=== PATIENT | female | born 1965 | race Caucasian/White ===

== ENCOUNTER 2018-06-30 17:39 | Observation (INO) ==
[~2018-06-30 17:39] MED LIST: Ipratropium/Albuterol Neb 3 ML IH PRN
[2018-06-30] MEDS ORDERED: Aspirin 81 MG TAB.CHEW PO ONE (18:01)
--- NOTE | 2018-06-30 18:08 | Emergency Department Note ---
Disposition Clinical Impression: Chest pain Qualifiers: Chest pain type: unspecified Qualified Code(s): R07.9 - Chest pain, unspecified Disposition: Admitted As Inpatient Condition: Fair Chest Pain HPI - General Chief Complaint: ED Chest Pain Stated Complaint: CP x2days Time Seen by Provider: 06/30/18 17:52 Source: patient Limitations: no limitations Vital Signs Reviewed: Yes Nursing Notes Reviewed: Yes - History of Present Illness HPI Narrative: 53-year-old female presents emergency Department chief complaint of chest pain. Pain started approximately 2 days ago. It is intermittent its pressure sensation. She says it moves around in her chest but largely is a centrally located. Patient also has some neck pain which she feels is on related. Patient has a cardiac history. She had a catheterization about 9 months ago which apparently demonstrated atherosclerotic changes. She also has a history of CHF for which she takes Lasix. She feels like she is getting increased s welling of the lower extremities and also some increasing in shortness of breath. No fevers or chills. Patient states that she took her aspirin last night. She said that she took nitroglycerin today which eased the pain but then it came back and has since eased again. Currently she is pain-free. Pt complaint: chest pain Onset (ago): day(s) Duration: intermittent Onset: during rest, during exertion Pain Location: substernal Severity: moderate Severity scale (1-10): 4 Quality: tightness, heaviness Pain Radiation: neck Improves with: nothing Worsens with: exertion Context: recent illness Treatments prior to arrival chest pain: aspirin, nitroglycerin - Related Data Previous Rx's Medication Instructions Recorded Clindamycin HCl 300 mg PO TID #30 capsule 11/16/16 Mupirocin [Bactroban Oint] 22 appl TP BID #1 tube 11/16/16 Allergies Allergy/AdvReac Type Severity Reaction Status Date / Time No Known Allergies Allergy Verified 11/01/16 12:58 All systems ED: reviewed and negative except as stated. Constitutional: Reports: as per HPI Eyes: Reports: as per HPI ENT ED: Reports: as per HPI Cardiovascular: Reports: chest pain Respiratory: Reports: as per HPI Gastrointestinal: Reports: as per HPI Chest Pain PMH - Past Medical History Medical history: Reports: asthma, CHF, COPD, GERD, hyperlipidemia, hypertension Psychiatric history: Reports: no psych history - Social History Smoking Status: Current every day smoker Alcohol use: Reports: none Drug use: Reports: none Physical Exam - General Limitations: no limitations General appearance: alert - Head Head exam: atraumatic - Eye Eye exam: Present: normal appearance - ENT ENT exam: normal exam - Neck Neck exam: Present: normal inspection - Chest Chest inspection: Present: normal inspection - Respiratory Respiratory exam: Present: normal lung sounds bilaterally - Cardiovascular Cardiovascular exam: Present: regular rate - Abdominal Exam Abdominal exam: Present: soft, Non-Tender - Expanded Lower Extremity Exam Hip/Pelvis exam: Present: normal inspection - Neurological Exam Neurological exam: Present: alert, oriented X3 - Psychiatric Psychiatric exam: Present: normal affect, normal mood - Skin Skin exam: Present: warm, dry, intact Course Vital Signs Temperature 98.1 F 06/30/18 17:51 Pulse Rate 98 06/30/18 17:51 Respiratory Rate 18 06/30/18 17:51 Blood Pressure 148/90 06/30/18 17:51 O2 Sat by Pulse Oximetry 89 06/30/18 17:51 Temperature 98.1 F 06/30/18 17:51 Pulse Rate 98 06/30/18 17:51 Respiratory Rate 18 06/30/18 17:51 Blood Pressure 148/90 06/30/18 17:51 O2 Sat by Pulse Oximetry 89 06/30/18 17:51 Oxygen Delivery Oxygen Delivery Room Air Chest Pain - MDM Narrative Medical decision making narrative: We will do usual cardiac workup on the patient. We will give her aspirin. She does not require nitroglycerin at this time. If she develops chest pain while here we will do that. Initial EKG was unremarkable. Once labs are back likely will admit to the hospitalist service for additional evaluation and treatment considering the patient's symptoms and risk factors. - Medical Records Medical records reviewed: Yes I reviewed the patient's medical records. - Lab Data Lab results reviewed: Yes I reviewed the patient's lab results. - Radiology Data Radiology results reviewed: Yes I reviewed the patient's radiology results. - EKG Data EKG attestation: Yes I reviewed and interpreted this EKG. EKG shows normal: sinus rhythm Rate: normal Rhythm: NSR When compared to previous EKG there are: no significant changes Interpretation: no acute changes Heart Score - Score History: Moderately Suspicious EKG: Normal Age: 45-65 Risk Factors: Equal/Greater than 3 risk factor or history of atherosclerotic disease
[2018-06-30 18:28] LABS: Basophils # 0.1 K/mcL (0.0-0.2); Basophils % 0.5 %; Eosinophils # 0.3 K/mcL (0.0-0.6); Eosinophils % 3.4 %; Hematocrit 39.4 % (35.3-44.9); Hemoglobin 13.7 g/dL (11.5-15.4); Immature Granulocytes % 0.2 % (0-4); Lymphocytes # 2.6 K/mcL (0.6-4.6); Lymphocytes % 27.2 %; Mean Corpuscular HGB Conc 34.8 g/dL (31.6-35.5); Mean Corpuscular Hemoglobin 30.6 pg (28.0-33.3); Mean Corpuscular Volume 87.9 fL (83.0-100.0); Mean Platelet Volume 9.3 fL (9.4-12.4); Monocytes # 0.4 K/mcL (0.0-1.3); Monocytes % 4.6 %; Neutrophils # 6.2 K/mcL (1.6-8.9); Platelet Count 246 K/mcL (140-400); Red Blood Count 4.48 M/mcL (3.82-4.97); Segmented Neutrophils % 64.1 %
--- NOTE | 2018-06-30 18:29 | Emergency Department Note ---
Disposition Clinical Impression: Chest pain Qualifiers: Chest pain type: unspecified Qualified Code(s): R07.9 - Chest pain, unspecified Disposition: Admitted As Inpatient Condition: Fair Referrals: Jody Jiménez CNP [Primary Care Provider] - Forms: ED Satisfaction Letter Time of Disposition: 20:34 Chest Pain HPI - General Chief Complaint: ED Chest Pain Stated Complaint: CP x2days Time Seen by Provider: 06/30/18 17:52 Source: patient Limitations: no limitations Vital Signs Reviewed: Yes Nursing Notes Reviewed: Yes - History of Present Illness HPI Narrative: Patient is a 53-year-old female presenting with chest pain. Patient has history of COPD, CHF and hyperlipidemia. Patient states that for the past 2 days she has been having intermittent chest pressure middle of her chest just to the left side of her breast. This can happen with exertion or at rest. Pain does not resolve on its own. Patient states today she had an increased episode of chest pressure with associated short of breath. She did take 1 nitroglycerin which took the pain away. No associated nausea or vomiting. She does have history of left heart catheter multiple months ago. She states recently she is gaining weight and feels as though she is retaining more fluid. Notes that 1 month ago she would 193 pounds, however today she was 206. She states that she has recently increased her Lasix dose to 60 mg. Per her PCP recommendations. Pain Location: substernal Severity scale (1-10): 4 Quality: tightness, heaviness Improves with: nothing Worsens with: exertion Context: recent illness - Related Data Previous Rx's Medication Instructions Recorded Clindamycin HCl 300 mg PO TID #30 capsule 11/16/16 Mupirocin [Bactroban Oint] 22 appl TP BID #1 tube 11/16/16 Allergies Allergy/AdvReac Type Severity Reaction Status Date / Time No Known Allergies Allergy Verified 11/01/16 12:58 All systems ED: reviewed and negative except as stated. Review of Systems: As Per HPI Constitutional: Reports: as per HPI Eyes: Reports: as per HPI ENT ED: Reports: as per HPI Cardiovascular: Reports: chest pain Respiratory: Reports: as per HPI Gastrointestinal: Reports: as per HPI Genitourinary: Denies: dysuria, frequency, hematuria, discharge Musculoskeletal: Denies: back pain, neck pain, arthralgia, myalgia Integumentary: Denies: rash, abrasion, lesions Neurological: Denies: headache, weakness, numbness, paresthesias, confusion, abnormal gait, vertigo Psychiatric: Denies: anxiety, depression, suicidal thoughts, homicidal thoughts, auditory hallucinations, visual hallucinations Chest Pain PMH - Past Medical History Medical history: Reports: asthma, CHF, COPD, GERD, hyperlipidemia, hypertension Psychiatric history: Reports: no psych history - Social History Smoking Status: Current every day smoker Alcohol use: Reports: none Drug use: Reports: none Physical Exam - General Limitations: no limitations General appearance: alert - Head Head exam: atraumatic, normocephalic, normal inspection - Eye Eye exam: Present: normal appearance, PERRL, EOMI - ENT ENT exam: normal exam, normal oropharynx, mucous membranes moist - Neck Neck exam: Present: normal inspection, full ROM, trachea midline - Chest Chest inspection: Present: normal inspection - Respiratory Respiratory exam: Present: normal lung sounds bilaterally - Cardiovascular Cardiovascular exam: Present: regular rate, normal rhythm, normal heart sounds - Abdominal Exam Abdominal exam: Present: soft, Non-Tender. Absent: tenderness, distention, guarding, rebound, rigidity - Extremities Exam Extremities exam: Present: normal capillary refill, pedal edema (1-2+ pitting edema in the bilateral lower extremities). Absent: tenderness, calf tenderness - Neurological Exam Neurological exam: Present: alert, oriented X3 - Psychiatric Psychiatric exam: Present: normal affect, normal mood Course Vital Signs Temperature 98.1 F 06/30/18 17:51 Pulse Rate 98 06/30/18 17:51 Respiratory Rate 18 06/30/18 17:51 Blood Pressure 148/90 06/30/18 17:51 O2 Sat by Pulse Oximetry 89 06/30/18 17:51 Temperature 98.1 F 06/30/18 17:51 Pulse Rate 88 06/30/18 20:54 Respiratory Rate 18 06/30/18 20:54 Blood Pressure 116/68 06/30/18 20:54 O2 Sat by Pulse Oximetry 93 06/30/18 20:54 Oxygen Delivery Oxygen Delivery Nasal Cannula Chest Pain - MDM Narrative Medical decision making narrative: Patient is a 53-year-old female presented with chest pain. History of COPD, CHF, hypertension and hyperlipidemia. Patient states that she has been having chest pain episodes described as pressure-like sensation that is exertional with associated short of breath. On examination, patient is normotensive and afebrile. On examination she is clear to auscultation bilaterally in no acute distress, RRR. CBC, BMP, troponin and BNP are all within normal limits. Chest x-ray does show pulmonary vascular congestion, no opacity or effusion. She was given 1 dose of Lasix 40 mg IV. EKG was performed at 1753 with a ventricular rate of 96, regular rhythm, no ST elevation, ST depression or T-wave changes, no changes from previous EKG in 2017. No acute ischemic changes are noted. Troponin is negative. Given patient's concerning story as well as vascular history, will admit patient this point in time for ACS rule out. - Medical Records Medical records reviewed: Yes I reviewed the patient's medical records. - Lab Data Lab results reviewed: Yes I reviewed the patient's lab results. Result diagrams: 06/30/18 18:03 06/30/18 18:03 Lab Results 06/30/18 06/30/18 06/30/18 Range/Units 18:03 18:03 18:03 WBC 9.7 (4.3-11.1) K/mcL RBC 4.48 (3.82-4.97) M/mcL Hgb 13.7 (11.5-15.4) g/dL Hct 39.4 (35.3-44.9) % MCV 87.9 (83.0-100.0) fL MCH 30.6 (28.0-33.3) pg MCHC 34.8 (31.6-35.5) g/dL RDW 14.0 (11.5-14.5) % Plt Count 246 (140-400) K/mcL MPV 9.3 L (9.4-12.4) fL Immature Gran % 0.2 (0-4) % Seg Neutrophils % 64.1 % Lymphocytes % 27.2 % Monocytes % 4.6 % Eosinophils % 3.4 % Basophils % 0.5 % Neutrophils # 6.2 (1.6-8.9) K/mcL Lymphocytes # 2.6 (0.6-4.6) K/mcL Monocytes # 0.4 (0.0-1.3) K/mcL Eosinophils # 0.3 (0.0-0.6) K/mcL Basophils # 0.1 (0.0-0.2) K/mcL PT 12.2 H (9.4-12.1) Seconds INR 1.1 APTT 23.0 L (26.0-36.0) Seconds D-Dimer 412 (0-500) ng/mLFEU Sodium (136-145) mEq/L Potassium (3.5-5.1) mEq/L Chloride (98-107) mEq/L Carbon Dioxide (23-29) mEq/L BUN (6-20) mg/dL Creatinine (0.60-1.20) mg/dL Est GFR ( Amer) (> 60) Est GFR (Non-Af Amer) (> 60) BUN/Creatinine Ratio (6-26) Glucose (70-105) mg/dL Calculated Osmolality (280-300) Calcium (8.6-10.3) mg/dL Troponin I (< 0.04) ng/mL B-Natriuretic Peptide 27 (Less than 100) pg/mL 06/30/18 Range/Units 18:03 WBC (4.3-11.1) K/mcL RBC (3.82-4.97) M/mcL Hgb (11.5-15.4) g/dL Hct (35.3-44.9) % MCV (83.0-100.0) fL MCH (28.0-33.3) pg MCHC (31.6-35.5) g/dL RDW (11.5-14.5) % Plt Count (140-400) K/mcL MPV (9.4-12.4) fL Immature Gran % (0-4) % Seg Neutrophils % % Lymphocytes % % Monocytes % % Eosinophils % % Basophils % % Neutrophils # (1.6-8.9) K/mcL Lymphocytes # (0.6-4.6) K/mcL Monocytes # (0.0-1.3) K/mcL Eosinophils # (0.0-0.6) K/mcL Basophils # (0.0-0.2) K/mcL PT (9.4-12.1) Seconds INR APTT (26.0-36.0) Seconds D-Dimer (0-500) ng/mLFEU Sodium 140 (136-145) mEq/L Potassium 3.2 L (3.5-5.1) mEq/L Chloride 101 (98-107) mEq/L Carbon Dioxide 30 H (23-29) mEq/L BUN 9 (6-20) mg/dL Creatinine 0.72 (0.60-1.20) mg/dL Est GFR ( Amer) > 60 (> 60) Est GFR (Non-Af Amer) > 60 (> 60) BUN/Creatinine Ratio 13 (6-26) Glucose 91 (70-105) mg/dL Calculated Osmolality 288 (280-300) Calcium 9.6 (8.6-10.3) mg/dL Troponin I < 0.03 (< 0.04) ng/mL B-Natriuretic Peptide (Less than 100) pg/mL - Radiology Data Radiology results reviewed: Yes I reviewed the patient's radiology results. Chest X-Ray 06/30/18 18:01 IMPRESSION: Borderline pulmonary vascular congestion. Otherwise negative. D/ / Km Durand MD / Km Durand MD Interpreting Provider: Km Durand MD - EKG Data EKG attestation: Yes I reviewed and interpreted this EKG. Rolando - Rolando Situation: Demographics, MOA Background: Presenting Complaint, Relevant PMH, Meds, & Allergies Assessment: Vital Signs, Course and respsone to treatment, Exam Concerns, Patient/Family Expectation, Pertinant Lab Results, Outstanding Labs Recommendation: Barrier(s) to disposition, Recommendation based on pending studies, treatments, or consults VaniaBLizzeth Report Given to: Dr. Heather Marshall Repor Time: 20:58 (Accepted) Attestation Statement - Attestation Attestation: Patient was seen with resident physician. I reviewed the history, physical, assessment and plan, and agree with the findings. I also personally evaluated this patient and had uwyp-[id number] time with this patient. 53-year-old female presents emergency Department chief complaint of chest pain. Pain is a pressure described primarily in the central portion of the chest but moves around a little bit. It is intermittent episodes lasting minutes at a time. It has been ongoing for the last 2 days. She had it today and took a nitroglycerin and it got a little bit better which ultimately prompted her visit. She did take an aspirin last night. She denies fevers or chills. No shortest of breath. Review of systems as above remainder negative. Physical exam vital signs are stable. ENT is unremarkable. Heart regular rhythm and rate. Lungs clear. Abdomen is soft and nontender. Extremity is unremarkable. Neurologically intact pre-and skin no rashes. Psych normal. ED course. We will do a cardiac workup. EKG shows no acute ischemic changes initially. Patient was pain-free at the time of evaluation so we did not give aspirin but we will held any nitroglycerin. Because the patient has a history of coronary artery disease and she is having the scan of chest pain she will be admitted to the hospitalist service for further evaluation and treatment I once her initial workup is complete. Initial workup did not reveal acute abnormalities. Hemodynamically she remained stable while in the ER. I agree with the resident physician assessment and plan.
[2018-06-30 18:36] LABS: INR 1.1; Prothrombin Time 12.2 Seconds (9.4-12.1)
[2018-06-30 18:47] LABS: Troponin I < 0.03 ng/mL (< 0.04)
[2018-06-30 18:48] LABS: BUN/Creatinine Ratio 13 (6-26); Blood Urea Nitrogen 9 mg/dL (6-20); Calcium 9.6 mg/dL (8.6-10.3); Carbon Dioxide 30 mEq/L (23-29); Chloride 101 mEq/L (98-107); Glucose 91 mg/dL (70-105); Osmolality,Calculated 288 (280-300); Potassium 3.2 mEq/L (3.5-5.1); Sodium 140 mEq/L (136-145); eGFR For Non-African Americans > 60 (> 60)
[2018-06-30] MEDS ORDERED: Furosemide 40 MG/4 ML VIAL IVP ONE (20:33)
[2018-06-30] MEDS ORDERED: Naloxone 0.4 MG/ML INJ IVP PRN (21:55)
[2018-06-30] MEDS ORDERED: *HR* Morphine 2 MG/ML SYRINGE IVP PRN (21:55)
[2018-06-30] MEDS ORDERED: Nitroglycerin 0.4 MG TAB.SUBL SL PRN (21:55)
--- NOTE | 2018-06-30 22:14 | Internal Med History&Physical ---
Date of Encounter: 06/30/18 Time of Encounter: 22:06 Internal Medicine - H&P: HPI Chief complaint: Chest Pain History of present illness: Ms. Salinas is a 53 year old female female past medical history of COPD, CHF, hypertension and hyperlipidemia who presents to the ED with a chief complaint of chest pain. Patient states that she has been having intermittent chest pressure located near the left breast for the past 2 days. Patient did take 1 sublingual nitroglycerin which alleviated the pain. Patient has noted weight gain and feels that she is retaining more fluid in that she wait 193 pounds approximately one month ago and now weighs 206. She recently had her Lasix increased to 60 mg by her primary care doctor. On arrival patient is normotensive and afebrile. Mildly hypokalemic with a initial negative troponin and normal BNP. EKG was reviewed which appears to be poor quality however, no significant ST or T-wave changes noted. Would recommend repeat. Chest x-ray suggestive of mild pulmonary vascular congestion. IV Lasix in the ED 40 mg IV push. An was given 40 mg of Lasix in the ED. Past Med Surg Social Fam HX - Past Medical History Medical history: asthma, CHF, COPD, GERD, hyperlipidemia, hypertension Additional medical history: sleep disorder. nerve pain Psychiatric history: no psych history - Past Surgical History Additional surgical history: back surgery - Social History Smoking Status: Current every day smoker Smokeless Tobacco Status: No Alcohol use: none Drug use: none Internal Medicine - H&P: Meds Clindamycin HCl 300 mg PO TID #30 capsule 11/16/16 [Rx] Mupirocin [Bactroban Oint] 22 appl TP BID #1 tube 11/16/16 [Rx] Albuterol Sulfate [Albuterol Inhaler] 0 puff IH Q4HR 06/30/18 [History] Cholecalciferol (Vitamin D3) [Vitamin D] 2,000 unit PO DAILY 06/30/18 [History] Fluticasone Propionate [Flovent Diskus] 220 mcg IH BID 06/30/18 [History] Furosemide [Lasix] 40 mg PO DAILY 06/30/18 [History] Gabapentin [Neurontin] 800 mg PO TID 06/30/18 [History] Loratadine [Allergy Relief] 10 mg PO DAILY 06/30/18 [History] Mirtazapine [Remeron] 15 mg PO HS 06/30/18 [History] Omeprazole [PriLOSEC] 20 mg PO DAILY 06/30/18 [History] Simvastatin [Zocor] 40 mg PO HS 06/30/18 [History] Tizanidine HCl [Zanaflex] 4 mg PO BID 06/30/18 [History] Zolpidem [Ambien] 10 mg PO DAILY 06/30/18 [History] amLODIPine [Norvasc] 5 mg PO DAILY 06/30/18 [History] hydrOXYzine pamoate [HydrOXYzine Pamoate] 25 mg PO TID 06/30/18 [History] Allergy/AdvReac Type Severity Reaction Status Date / Time No Known Allergies Allergy Verified 11/01/16 12:58 All Systems PM: A 10-system review of systems was performed and is negative for pertinent findings except as documented above in the HPI. - Constitutional Constitutional: no chills, no fever(s), no night sweats - EENT Eyes: no change in vision, no discharge, no pain, no photophobia Ears: no ear discharge, no ear pain, no tinnitus Nose, mouth and throat: no dysphagia, no nasal discharge, no neck pain, no sore throat - Cardiovascular Cardiovascular ROS IM: no chest pain, no diaphoresis, no dyspnea, no lightheadedness, no palpitations, no syncope - Respiratory Respiratory: no cough, no dyspnea, no wheezing, no excessive phlegm production - Gastrointestinal Gastrointestinal: no abdominal pain, no diarrhea, no hematemesis, no hematochezia, no melena, no nausea, no vomiting - Genitourinary Genitourinary: no change in urinary stream, no dysuria, no flank pain, no hematuria - Musculoskeletal Musculoskeletal ROS IM: no numbness, no tingling - Integumentary Integumentary IM: no rash, no unusual bruising - Neurological Neurological ROS: no confusion, no convulsions, no focal weakness, no numbness, no tingling, no tremor(s) - Hematologic/Lymphatic Hematologic/Lymphatic: no easy bruising - Constitutional Vitals: Temp Pulse Resp BP Pulse Ox 98.1 F 88 18 116/68 93 06/30/18 17:51 06/30/18 20:54 06/30/18 20:54 06/30/18 20:54 06/30/18 20:54 Exam: General: Alert and oriented Skin:Normal color, no rash, no lesions. HEENT:EOM, pupils equal, round and reactive. Cardiovascular:Normal S1 & S2, no rubs, murmurs or gallops. No JVD. Pulse regular. Lungs:Normal breath sounds, no wheezes or crackles. Abdomen:Soft, non-tender, no rigidity. Extremities:No deformity, no edema or tenderness, no joint swelling or clubbing. Neurological:Normal cognition and motor skills. Pulses:Carotid and radial pulses normal +2. Rest of the physical exam is non contributory Internal Med - H&P Results - Labs CBC & Chem 7: 07/01/18 00:17 07/01/18 00:17 Labs: Short CBC 06/30/18 Range/Units 18:03 WBC 9.7 (4.3-11.1) K/mcL Hgb 13.7 (11.5-15.4) g/dL Hct 39.4 (35.3-44.9) % Plt Count 246 (140-400) K/mcL Neutrophils # 6.2 (1.6-8.9) K/mcL BMP 06/30/18 18:03 Sodium 140 Potassium 3.2 L Chloride 101 Carbon Dioxide 30 H BUN 9 Creatinine 0.72 Glucose 91 Calcium 9.6 Cardiac Enzymes 06/30/18 Range/Units 18:03 Troponin I < 0.03 (< 0.04) ng/mL - Impressions ITS Impressions Chest X-Ray 06/30/18 18:01 IMPRESSION: Borderline pulmonary vascular congestion. Otherwise negative. D/ / Km Durand MD / Km Durand MD Interpreting Provider: Km Durand MD - Assessment and plan (1) Chest pain Status: Acute Assessment and plan: Patient is a 53-year-old female with a past medical history of hypertension, CHF, COPD and significant smoking history who presents with chest pain described as substernal, nonradiating associated with left shoulder and left arm pain that was alleviated with nitroglycerin. Patient states that she has been overexerting herself lately doing housecleaning. Patient states she had a left heart catheter approximately 9 months ago which she stated showed plaque but no stents were placed at the time. Initial troponin were negative and EKG showed though slightly of poor quality does not show any ischemic changes. Patient currently chest pain-free and is feeling better since she arrived. -Trend troponin -Continue telemetry -Cardiology consult Qualifiers: Chest pain type: unspecified Qualified Code(s): R07.9 - Chest pain, unspecified (2) Congestive heart failure Status: Acute Assessment and plan: Patient reports a weight gain of approximately 7 pounds over the past week associated with shortness of breath particularly over the past couple days and symptoms suggestive of orthopnea. She does admit to drinking 8-98 ounce bottles of water a day. Patient recently had her Lasix increased from 40-60 mg a day by her PCP. Chest x-ray shows borderline pulmonary vascular congestion. Lungs were clear and trace edema noted in the lower extremities bilaterally. Patient took a nebulizer treatment earlier today which she states also helped. Suspect mild congestive heart failure. Patient feeling better after receiving Lasix here in the ED. -We will monitor daily weights -Strict I's and O's with fluid restriction to 1.5 L daily -Consider repeating echocardiogram -We will resume patient's home Lasix -Appreciate cardiology input Qualifiers: Heart failure type: unspecified Heart failure chronicity: unspecified Qualified Code(s): I50.9 - Heart failure, unspecified (3) Hypertension Status: Acute Qualifiers: Hypertension type: essential hypertension Qualified Code(s): I10 - Es sential (primary) hypertension (4) COPD (chronic obstructive pulmonary disease) Status: Acute Assessment and plan: History of COPD not on home oxygen. Lungs were clear on examination. No evidence of an acute exacerbation. -DuoNeb and albuterol PRN -Resume patient's home inhalers Qualifiers: COPD type: unspecified COPD Qualified Code(s): J44.9 - Chronic obstructive pulmonary disease, unspecified (5) DVT prophylaxis Status: Acute Assessment and plan: Subcutaneous heparin - Time Spent With Patient Total time spent is greater than 50% in coordination of care (as documented) at patient's floor/unit and/or counseling patient:
[2018-07-01] MEDS: *HR* Heparin 5,000 UNIT/ML VIAL SQ SCH ×2 (00:37→05:57)
[2018-07-01 01:20] LABS: Hematocrit 38.8 % (35.3-44.9); Mean Corpuscular HGB Conc 33.5 g/dL (31.6-35.5); Mean Corpuscular Hemoglobin 30.1 pg (28.0-33.3); Mean Corpuscular Volume 89.8 fL (83.0-100.0); Platelet Count 253 K/mcL (140-400); Red Blood Count 4.32 M/mcL (3.82-4.97); Red Cell Distribution Width 13.8 % (11.5-14.5)
[2018-07-01 01:34] LABS: INR 1.1; Prothrombin Time 12.8 Seconds (9.4-12.1)
[2018-07-01 01:39] LABS: Alanine Aminotransferase 16 Units/L (7-52); Albumin 4.1 g/dL (3.5-5.7); Albumin/Globulin Ratio 1.6 (1.1-2.2); Alkaline Phosphatase 98 Units/L (34-104); Aspartate Amino Transferase 15 Units/L (13-39); BUN/Creatinine Ratio 14 (6-26); Bilirubin,Total 0.3 mg/dL (0.3-1.0); Blood Urea Nitrogen 12 mg/dL (6-20); Calcium 9.1 mg/dL (8.6-10.3); Carbon Dioxide 30 mEq/L (23-29); Chloride 102 mEq/L (98-107); Globulin 2.6 g/dL (2.4-3.5); Glucose 94 mg/dL (70-105); Magnesium 2.2 mg/dL (1.6-2.6); Osmolality,Calculated 290 (280-300); Potassium 3.3 mEq/L (3.5-5.1); Sodium 140 mEq/L (136-145); Total Protein 6.7 g/dL (6.4-8.9); eGFR For Non-African Americans > 60 (> 60)
[2018-07-01] MEDS ORDERED: Acetaminophen 325 MG TABLET PO PRN (05:59)
[2018-07-01] MEDS ORDERED: traMADol 50 MG TABLET PO PRN (05:59)
[2018-07-01] MEDS ORDERED: tiZANidine 4 MG TABLET PO SCH ×2 (06:15→09:00)
[2018-07-01 06:17] VITALS: BP 120/82
--- NOTE | 2018-07-01 06:43 | Event Note ---
Date of Encounter: 07/01/18 Time of Encounter: 05:57 Alerted by patient's nurse MIR Connelly that patient was wanting to leave AMA because she was upset due to not receiving any medications and stating she was in pain and having charley horses in her bilateral legs. Patient's nurse stated this was the first time she never heard this from the patient. Previously patient stated she had no needs the needed addressed when she was assessed. Went to see patient who is resting in bed and agitated. I asked the patient what was wrong and she said no one was paying attention to her leg pain. I explained that her BP was low and that she would not be receiving opioid pain medications until her BP was higher. She stated she takes Zanaflex for muscle spasms. Reviewed pts. chart and placed order for 80 mg Lipitor once now, Echocardiogram, and nuclear pharm stress today if third troponin is <0.03 (first two WNL). Pt. also stated she was hot. Instructed nurse to place a fan on the pt. Pt. was already NPO status. I discussed the plan with the pt. who expressed understanding and agreement. I instructed the pt. that it was not in her best interest to leave AMA d/t her current CP and cardiac sx. Pt. agreed. Nurse instructed to monitor the pt. closely. Called Bed Management and spoke w/Adenike to inform her of the ordered nuclear pharm stress test for this afternoon. Consider Cardiology consult if troponins, Echocardiogram, and/or stress test results are abnormal.
[2018-07-01] MEDS ORDERED: Regadenoson 0.4 MG/5 ML SYRINGE IVP ONE (06:46)
[2018-07-01] MEDS ORDERED: FLOVENT IH SCH (09:00)
[2018-07-01] MEDS ORDERED: Loratadine 10 MG TABLET PO SCH (09:00)
[2018-07-01] MEDS ORDERED: Cholecalciferol (D-3) 1,000 UNIT TABLET PO SCH (09:00)
[2018-07-01] MEDS ORDERED: Gabapentin 400 MG CAPSULE PO SCH (09:00)
[2018-07-01] MEDS ORDERED: hydrOXYzine pamoate 25 MG CAPSULE PO SCH (09:00)
[2018-07-01] MEDS ORDERED: amLODIPine 5 MG TABLET PO SCH (09:00)
--- NOTE | 2018-07-01 18:45 | Discharge Summary ---
Orders not resulted at time of discharge: Pending orders 06/30/18 18:01 ECG 12 lead ECG [ECG] Stat 07/01/18 06:19 NM waldo perf SPECT single [NM] Routine 07/01/18 07:00 ECG 12 lead ECG [ECG] Routine Date of Encounter: 07/01/18 Time of Encounter: 08:00 - Discharge Diagnosis (1) Chest pain Priority: Primary Status: Acute Qualifiers: Chest pain type: unspecified Qualified Code(s): R07.9 - Chest pain, unspecified (2) Congestive heart failure Priority: Secondary Status: Acute Qualifiers: Heart failure type: unspecified Heart failure chronicity: unspecified Qualified Code(s): I50.9 - Heart failure, unspecified (3) Hypertension Priority: Secondary Status: Acute Qualifiers: Hypertension type: essential hypertension Qualified Code(s): I10 - Essential (primary) hypertension (4) COPD (chronic obstructive pulmonary disease) Priority: Secondary Status: Acute Qualifiers: COPD type: unspecified COPD Qualified Code(s): J44.9 - Chronic obstructive pulmonary disease, unspecified Hospital course: Informed by nursing staff that patient was in cardiac stress test when she had the test stopped and decided to leave- She left AMA before I could evaluated the patient - Time Spent with Patient Total time spent providing and/or coordinating discharge services: - Discharge Medications Home Medications: Clindamycin HCl 300 mg PO TID #30 capsule 11/16/16 [Rx] Mupirocin [Bactroban Oint] 22 appl TP BID #1 tube 11/16/16 [Rx] Albuterol Sulfate [Albuterol Inhaler] 0 puff IH Q4HR 06/30/18 [History] Cholecalciferol (Vitamin D3) [Vitamin D] 2,000 unit PO DAILY 06/30/18 [History] Fluticasone Propionate [Flovent Diskus] 220 mcg IH BID 06/30/18 [History] Furosemide [Lasix] 40 mg PO DAILY 06/30/18 [History] Gabapentin [Neurontin] 800 mg PO TID 06/30/18 [History] Loratadine [Allergy Relief] 10 mg PO DAILY 06/30/18 [History] Mirtazapine [Remeron] 15 mg PO HS 06/30/18 [History] Omeprazole [PriLOSEC] 20 mg PO DAILY 06/30/18 [History] Simvastatin [Zocor] 40 mg PO HS 06/30/18 [History] Tizanidine HCl [Zanaflex] 4 mg PO BID 06/30/18 [History] Zolpidem [Ambien] 10 mg PO DAILY 06/30/18 [History] amLODIPine [Norvasc] 5 mg PO DAILY 06/30/18 [History] hydrOXYzine pamoate [HydrOXYzine Pamoate] 25 mg PO TID 06/30/18 [History] Allergies/Adverse Reactions: Allergy/AdvReac Type Severity Reaction Status Date / Time No Known Allergies Allergy Verified 11/01/16 12:58 Date of admission: 06/30/18 21:38 Primary care physician: Jody Jiménez CNP - Constitutional Vitals: Temp Pulse Resp BP Pulse Ox 97.5 F L 60 16 120/82 93 07/01/18 06:13 07/01/18 06:13 07/01/18 06:13 07/01/18 06:13 07/01/18 06:13 Exam: . - Patient Status Disposition: Left Against Medical Advice Condition: Fair - Discharge Instructions Follow Up With: Jody Jiménez CNP [Primary Care Provider] -
[2018-07-01] MEDS ORDERED: Mirtazapine 15 MG TABLET PO SCH (21:00)
--- NOTE | 2018-07-02 15:01 | Electrocardiograph Report ---
[address] [address] Test Date: 2018-06-30 Pat Name: Yesi Salinas Department: [id number] Room: 3B64 Gender: F Education Associate: : [id number] Requested By: Mehran Rodríguez Order Number: [id number] Reading MD: Munir Sapp Measurements Intervals [place] Rate: 96 P: 60 MD: 141 QRS: 60 QRSD: 86 T: 60 QT: 354 QTc: 450 Interpretive Statements Sinus rhythm Electronically Signed On 07-02-2018 15:00:00 EST by Munir Sapp
== END 2018-07-01 09:20 | disposition left against medical advice (07) ==
LOC: 3BNU 17:39 → EMEROOARM 17:39 → 3BNU 22:14
PROVIDERS: ADMIT Internal Medicine; ATTEND Internal Medicine